=== PATIENT | male | born 1955 | race Hispanic/Latino ===

== ENCOUNTER → 2022-05-15 | Outpatient (CLI) | payer MEDICARE | END | disposition home or self-care (01) | LOC: SHCH 14:30 | PROVIDERS: ATTEND Internal Medicine Cardiovascular Disease | DX: I35.1 Nonrheumatic aortic (valve) insufficiency (principal); I10 Essential (primary) hypertension; I25.5 Ischemic cardiomyopathy; I25.119 Atherosclerotic heart disease of native coronary artery with unspecified angina pectoris | CPT/HCPCS: 93306 ==

== ENCOUNTER → 2022-05-27 | Outpatient (CLI) | payer MEDICARE ==
[~2022-05-27] VITALS: Ht 170.2 cm; Wt 103.9 kg
[~2022-05-27] MED LIST: REGADENOSON 0.4 MG/5 ML PF SYG IVP SCH
== END | disposition home or self-care (01) ==
LOC: SHCH 09:29
PROVIDERS: ATTEND Internal Medicine Cardiovascular Disease
DX: I25.119 Atherosclerotic heart disease of native coronary artery with unspecified angina pectoris (principal); I25.5 Ischemic cardiomyopathy; I10 Essential (primary) hypertension; R94.39 Abnormal result of other cardiovascular function study
CPT/HCPCS: 78452; 93017; 96374; A9500 ×2; J2785

== ENCOUNTER 2022-09-13 12:32 | Emergency (ER) | payer MEDICARE ==
[~2022-09-13] VITALS: Ht 170.2 cm; Wt 102.1 kg
[2022-09-13 12:33] VITALS: BP 157/83
[2022-09-13] MEDS ORDERED: GUAIFENESIN-CODEINE 5 ML SYRUP PO ONE (13:00)
[2022-09-13] MEDS ORDERED: ACETAMINOPHEN 500 MG TABLET PO ONE (13:00)
[2022-09-13] MEDS ORDERED: D-ME1POW16 PO (14:03)
== END 2022-09-13 14:13 | disposition home or self-care (01) ==
LOC: EDH 12:32
DX: J06.9 Acute upper respiratory infection, unspecified (principal); Z20.822 Contact with and (suspected) exposure to COVID-19; I10 Essential (primary) hypertension; E78.00 Pure hypercholesterolemia, unspecified; E66.9 Obesity, unspecified; Z68.35 Body mass index [BMI] 35.0-35.9, adult
CPT/HCPCS: 71045; 87804; 87880